=== PATIENT | female | born 1945 | race African-American/Black ===

== ENCOUNTER 2019-05-15 09:32 | Outpatient (CLI) | payer MEDICARE, MEDICAID ==
--- NOTE | 2019-05-15 10:16 | ULT ---
Exam: THYROID ULTRASOUND: COMPARISON: 02/15/2017. HISTORY: Multinodular goiter. Follow-up exam. FINDINGS: Thyroid isthmus measures 0.7 cm. Right thyroid lobe measures 6.5 x 2.5 x 2.5 cm. Left thyroid lobe measures 6.9 x 3.7 x 3.4 cm. There are multiple complex and solid nodules throughout the thyroid gland. There is a hyperechoic nod ule in the mid portion right thyroid lobe measuring 0.6 x 0.4 x 0.6 cm. Previously, this nodule measured 0.6 x 0.4 x 0.6 cm. The previously noted ill-defined hypoechoic focus measuring 0.8 x 0.6 x 0.8 cm is not appreciated on the current exam. Additional grossly stable appearing hyperechoic nodules in the right thyroid lobe are noted. There is a 0.3 x 0.2 x 0.3 cm hypoechoic focus in the up per pole the right thyroid lobe, not appreciated on the previous exam. Stable calcification with shadowing in the left thyroid lobe, measuring 0.6 x 0.6 x 0.6 cm. Previousl y, this calcification measured 0.7 x 0.5 x 0.7 cm. There is a slightly ill-defined isoechoic solid nodule in the mid portion of the left thyroid lobe, measuring 2.5 x 1.9 x 1.9 cm. Previous, this nodu le measured 2.2 x 1.7 x 2.0 cm. There is a ill-defined isoechoic focus in the mid pole of the left thyroid lobe measuring 1.1 x 0.7 x 1.1 cm. This nodule is not demonstrated on the previous exam. Ther e is a 0.7 x 0.4 x 0.6 cm hypoechoic focus in the mid pole of the left thyroid lobe. IMPRESSION: Multiple nodules throughout the thyroid gland as described above. The largest nodule is in the lower pole of the left thyroid lobe and there does not appear to be significant interval change. Follow-up imaging in one year is recommended. Transcribed Date/Time: 05/15/2019 10:57 AM
== END 2019-05-15 09:33 | disposition home or self-care (01) ==
LOC: BICULT 09:32
PROVIDERS: ATTEND Otolaryngology Plastic Surgery within the Head & Neck
DX: E04.2 Nontoxic multinodular goiter (principal)
CPT/HCPCS: 76536